=== PATIENT | male | born 1980 | race Caucasian/White ===

== ENCOUNTER 2023-01-24 05:37 | Day surgery (SDC) | payer OTHER ==
[2023-01-21 10:28] VITALS: BMI 33.7
[2023-01-24] MEDS ORDERED: Vancomycin 1 GM VIAL ONE (06:30)
[2023-01-24 06:50] LABS: #Basophils 0.1 thou/uL (0.0-0.2); #Eosinphils 0.1 thou/uL (0.0-0.7); #Lymphocytes 2.3 thou/uL (1.20-3.40); #Monocytes 0.5 thou/uL (0.11-0.59); #Neutrophils 2.4 thou/uL (1.40-6.50); %Basophils 1.4 % (0.0-1.0); %Eosinophils 2.4 % (0.0-10.0); %Lymphocytes 42.6 % (21.0-51.0); %Monocytes 9.3 % (0.0-10.0); %Neutrophils 44.3 % (42.0-75.0); Hemoglobin 14.8 g/dL (14.0-18.0); Mean Corpuscular HGB CONC 31.6 g/dL (32.0-36.0); Mean Corpuscular Volume 91.8 fl (78.0-98.0); Mean Platelet Volume 9.2 fL (7.4-10.4); Platelet Count 249 10x3/uL (130-400); RBC Distribution Width 11.9 % (11.5-14.5); Red Blood Cell (RBC) Count 5.11 mill/uL (4.70-6.10); White Blood Cell (WBC) Count 5.5 10x3/uL (4.8-10.8)
[2023-01-24] MEDS ORDERED: Fentanyl 250 MCG/5 ML VIAL ONE (07:04)
[2023-01-24] MEDS ORDERED: Dexmedetomidine 200 MCG/2 ML VIAL ONE (07:05)
[2023-01-24 07:10] LABS: Anion Gap 12 mmol/L (10-20); BUN (Urea Nitrogen) 11 mg/dL (8.9-20.6); Calc. Creatinine Clearance 145 mL/min (70-130); Calcium 9.3 mg/dL (7.8-10.44); Carbon Dioxide 25 mmol/L (22-29); Chloride 107 mmol/L (98-107); Estimated GFR 93; Glucose 143 mg/dL (70-105); Sodium 140 mmol/L (136-145)
[2023-01-24] MEDS ORDERED: Sodium Chloride 0.9% 100 ML ONE (07:11)
[2023-01-24] MEDS ORDERED: CEFAZOLIN 2 GM VIAL ONE (07:11)
[2023-01-24] MEDS ORDERED: Lidocaine 1% PF 5 ML VIAL ONE (07:27)
[2023-01-24] MEDS ORDERED: Ondansetron PF 4 MG/2 ML Vial ONE (07:27)
[2023-01-24] MEDS ORDERED: PROPOFOL 200 MG/20 ML VIAL ONE (07:27)
[2023-01-24] MEDS ORDERED: Glycopyrrolate 0.2 MG/ML 5 ML SYRINGE ONE (07:27)
[2023-01-24] MEDS ORDERED: Ketorolac Tromethamine 30 MG/ML VIAL ONE (07:27)
[2023-01-24] MEDS ORDERED: NEOSTIGMINE 3 MG/3 ML SYR 3 MG/3 ML SYRINGE ONE (07:27)
[2023-01-24] MEDS ORDERED: Rocuronium Bromide 10 MG/ML (10ML VIAL) ONE (07:27)
[2023-01-24] MEDS ORDERED: Dexamethasone 20 MG/5 ML VIAL ONE (07:27)
[2023-01-24] MEDS ORDERED: ePHEDrine Sulfate 50 MG/10 ML VIAL ONE (07:27)
[2023-01-24] MEDS ORDERED: fentaNYL 50 mcg/mL 1 mL Vial ONE (09:10)
[2023-01-24] MEDS ORDERED: HYDROmorphone 0.5 MG/0.5 ML SYRINGE ONE ×2 (09:25→09:58)
[2023-01-24] MEDS ORDERED: HYDROcodone/Acetaminophen 5/325 mg Tablet ONE (10:47)
[2023-01-24] MEDS ORDERED: Cyclobenzaprine 10 MG TAB ONE (12:08)
== END 2023-01-24 12:24 | disposition home or self-care (01) ==
LOC: SDC 05:37
PROVIDERS: ATTEND Neurological Surgery
PROC: 0SG00AJ Fusion of Lumbar Vertebral Joint with Interbody Fusion Device, Posterior Approach, Anterior Column, Open Approach (ICD-10-PCS; principal; 2023-01-24)
DX: M51.16 Intervertebral disc disorders with radiculopathy, lumbar region (principal); Z79.890 Hormone replacement therapy; Z79.899 Other long term (current) drug therapy
CPT/HCPCS: 80048; 85025; 93005; 93010; C1713; C1768; C1776; C1889; J1100; J1170; J1885; J2405; J2704; J3010; J3370; J3490